=== PATIENT | female | born 1990 | race Hispanic/Latino ===

== ENCOUNTER 2020-03-26 07:53 | Outpatient (CLI) | payer OTHER ==
[2020-03-27 14:53] LABS: SARS-CoV-2 MS2 Positive; SARS-CoV-2 N Gene Negative; SARS-CoV-2 S Gene Negative; SARS-CoV-2 by NAA Not Detected (NotDetected); SARS-CoV-2 orf1ab Negative
== END 2020-03-26 07:54 | disposition home or self-care (01) ==
LOC: LABBT 07:53
PROVIDERS: ATTEND Obstetrics & Gynecology
DX: Z20.828 Contact with and (suspected) exposure to other viral communicable diseases (principal)
CPT/HCPCS: 87635; U0003

== ENCOUNTER 2020-03-30 19:15 | Inpatient (IN) | payer OTHER ==
[2020-03-31] MEDS ORDERED: Promethazine HCl 25 MG/ML VIAL IM PRN ×3 (03:51→10:22)
[2020-03-31] MEDS ORDERED: Butorphanol Tartrate 1 MG/ML VIAL SLOW IVP PRN (03:51)
[2020-03-31] MEDS ORDERED: Methylergonovine 0.2 MG/ML VIAL IM PRN (03:51)
[2020-03-31] MEDS ORDERED: Acetaminophen 500 MG TAB PO PRN (03:51)
[2020-03-31] MEDS ORDERED: NS w/ Oxytocin 10 units 500 ML IV SCH (03:51)
[2020-03-31] MEDS ORDERED: Carboprost 250 MCG/ML AMP IM PRN (03:51)
[2020-03-31] MEDS ORDERED: NS / Oxytocin 40 units/1000ml 1,000 ML IV PRN (03:51)
[2020-03-31] MEDS ORDERED: Diphenoxylate HCl/Atropine Tablet PO PRN ×2 (03:51)
[2020-03-31] MEDS ORDERED: Misoprostol 200 MCG TAB PR PRN (03:51)
[2020-03-31] MEDS ORDERED: Ibuprofen 800 MG TAB PO PRN (03:51)
[2020-03-31] MEDS ORDERED: Lidocaine 1% (PF) 30 ML VIAL SC PRN (03:51)
[2020-03-31] MEDS ORDERED: hydrALAZINE 20 MG/ML VIAL SLOW IVP PRN ×2 (03:51→14:12)
[2020-03-31] MEDS ORDERED: Ondansetron PF 4 MG/2 ML Vial IVP PRN ×3 (03:51→10:22)
[2020-03-31] MEDS ORDERED: HYDROcodone/Acetaminophen 5/325 mg Tablet PO PRN (03:51)
[2020-03-31 03:56] VITALS: BMI 39.6
[2020-03-31 04:09] LABS: Hemoglobin 11.4 g/dL (12.0-16.0); Mean Corpuscular HGB CONC 34.6 g/dL (32.0-36.0); Mean Corpuscular Hemoglobin 30.5 pg (27.0-31.0); Mean Corpuscular Volume 88.3 fL (78.0-98.0); Mean Platelet Volume 8.4 fL (7.4-10.4); Platelet Count 258 thou/uL (130-400); RBC Distribution Width 13.3 % (11.5-14.5); Red Blood Cell (RBC) Count 3.73 mill/uL (4.20-5.40); White Blood Cell (WBC) Count 7.3 thou/uL (4.8-10.8)
[2020-03-31 04:48] LABS: HBSAg Index 0.18 S/CO (0-0.99); Hep B Surf Ag Non-Reactive S/CO (NonReactive); Syphilis Antibody Nonreactive (Nonreactive); Syphilis Antibody Index 0.03 S/CO (<1.00 Non-Reactive)
[2020-03-31] MEDS: Lactated Ringer's 1,000 ML IV SCH ×2 (07:09→07:22)
[2020-03-31] MEDS: Misoprostol 100 MCG TAB VAG SCH ×3 (07:10→15:06)
[2020-03-31] MEDS ORDERED: Fentanyl 4 mcg/Bup 0.1% Cadd 100 ML ONE (08:20)
[2020-03-31] MEDS ORDERED: Naloxone HCl 0.4 mg/ml Vial IVP PRN ×2 (10:22)
[2020-03-31] MEDS ORDERED: Zolpidem Tartrate 5 MG TAB PO PRN (10:22)
[2020-03-31] MEDS ORDERED: Naloxone HCl 0.4 mg/ml Vial IV PRN (10:22)
[2020-03-31] MEDS ORDERED: Lactated Ringer's 500 ML IV PRN (10:22)
[2020-03-31] MEDS ORDERED: diphenhydrAMINE 50 MG/ML VIAL IM PRN (10:22)
[2020-03-31] MEDS ORDERED: Acetaminophen 325 MG TAB PO PRN (10:22)
[2020-03-31] MEDS ORDERED: diphenhydrAMINE 50 MG/ML VIAL IVP PRN ×2 (10:22)
[2020-03-31] MEDS ORDERED: EPHEDRINE 25 MG/5 ML SYRINGE SLOW IVP PRN (10:22)
[2020-03-31] MEDS ORDERED: diphenhydrAMINE 25 MG CAP PO PRN (10:22)
[2020-03-31] MEDS ORDERED: Communication Order-Pharmacy FS SCH ×2 (10:30)
[2020-03-31] MEDS ORDERED: Fentanyl 4 mcg/Bupivacaine 0.1% Cassette 100 ML EPIDURAL SCH (10:30)
[2020-03-31] MEDS ORDERED: Bupivacaine 0.25% HCL 30 ML VIAL ONE (11:29)
[2020-03-31] MEDS ORDERED: Lidocaine 2% MPF 10 ML AMP (For Epidural Use) ONE (11:29)
--- NOTE | 2020-03-31 12:09 | PDOC.OPDEL ---
OB Operative/Delivery Note Delivery Dr/Surgeon: All Pre-Delivery Diagnosis: elective induction Procedure/Post Delivery Dx: spontaneous vaginal delivery Weeks gestation: 39 Anesthesia: epidural - Findings A Sex: female - 1 min: 9 - 5 min: 9 - Additional Findings/Plan Placenta delivered: spontaneous Repaired Obstetrical Laceration: 1st degree Estimated blood loss: 50ml qbl Post delivery plan: routine recovery
[2020-03-31] MEDS ORDERED: Misoprostol 200 MCG TAB ONE (12:52)
[2020-03-31] MEDS ORDERED: Carboprost 250 MCG/ML AMP ONE (13:09)
[2020-03-31] MEDS ORDERED: NS / Oxytocin 40 units/1000ml 1,000 ML ONE (13:09)
[2020-03-31] MEDS ORDERED: Methylergonovine 0.2 MG/ML VIAL ONE (13:09)
[2020-03-31] MEDS ORDERED: Preparation H Ointment 28 GM TUBE PR PRN (14:12)
[2020-03-31] MEDS ORDERED: Bisacodyl 10 MG SUPP PR PRN (14:12)
[2020-03-31] MEDS ORDERED: NS / Oxytocin 40 units/1000ml 1,000 ML IV SCH (14:12)
[2020-03-31] MEDS ORDERED: Benzocaine-Menthol 82.5 ML CAN TOP PRN (14:12)
[2020-03-31] MEDS ORDERED: Lanolin Ointment 7 GM TUBE TOP PRN (14:12)
[2020-03-31] MEDS ORDERED: Milk Of Magnesia 30 ML UDCUP PO PRN (14:12)
[2020-03-31] MEDS ORDERED: traMADol HCl 50 MG TAB PO PRN (14:12)
[2020-03-31] MEDS: Ferrous Sulfate 325 MG TAB PO SCH (15:06)
[2020-03-31] MEDS: Ibuprofen 800 MG TAB PO SCH (22:02)
[2020-03-31] MEDS: Docusate Calcium (SURFAK) 240 MG CAP PO SCH (22:02)
[2020-04-01] MEDS: Ibuprofen 800 MG TAB PO SCH ×2 (05:14→14:30)
--- NOTE | 2020-04-01 07:48 | PDOC.PP ---
Post Progress Note Post Day #: 1 PO intake tolerated: yes Flatus: yes Ambulation: yes Vital Signs (12 hours) Temp Pulse Resp BP 04/01/20 05:10 97.6 F 69 14 121/77 03/31/20 23:50 98.2 F 68 15 104/70 Weight Weight 210 lb - Physical Examination Abdominal: lochia, no distention, appropriately TTP Extremities: negative homans (B) Result Diagrams: 03/31/20 03:59 Additional Labs: Post Labs Hep Bs Antigen Non-Reactive S/CO (NonReactive) 03/31/20 03:59 Blood Type O POSITIVE 03/31/20 03:59 - Assessment/Plan Post day 1--doing well. Discharge home today. has f/u in 6 weeks.
[2020-04-01 08:15] VITALS: BP 122/81; TEMP 97.7
[2020-04-01] MEDS ORDERED: FLU VACC QS2020-21(6MOS UP)/PF 60 MCG/0.5 ML SYRINGE IM ONE (08:45)
[2020-04-01] MEDS ORDERED: Prenatal Vitamin 1 TAB PO SCH (09:00)
[2020-04-01] MEDS: Docusate Calcium (SURFAK) 240 MG CAP PO SCH (10:02)
[2020-04-01] MEDS: Ferrous Sulfate 325 MG TAB PO SCH (10:03)
[2020-04-01] MEDS ORDERED: Adacel (T-DAP) 0.5 ML SYRINGE IM ONE (14:12)
== END 2020-04-01 14:40 | disposition home or self-care (01) | DRG 807 ==
LOC: L&D-LIB 03-31 03:16 → EEVIPCON 03-31 03:16 → 3SW 03-31 15:45
PROVIDERS: ADMIT Obstetrics & Gynecology; ATTEND Obstetrics & Gynecology
PROC: 10E0XZZ Delivery of Products of Conception, External Approach (ICD-10-PCS; principal; 2020-03-31)
PROC: 0HQ9XZZ Repair Perineum Skin, External Approach (ICD-10-PCS; 2020-03-31)
DX: O70.0 First degree perineal laceration during delivery (principal); Z37.0 Single live birth; Z3A.39 39 weeks gestation of pregnancy; Z20.828 Contact with and (suspected) exposure to other viral communicable diseases
CPT/HCPCS: 36415; 51702; 85027; 86780; 86850; 86900; 86901; 87340; J2001; J2210; J3490; S0020

== ENCOUNTER 2024-06-15 10:00 | Emergency (ER) | payer SELFPAY ==
[2024-06-15] MEDS ORDERED: Ketorolac Tromethamine 30 MG (1 mL) VIAL ONE (11:19)
[2024-06-15] MEDS ORDERED: hydrOXYzine 25 MG TAB ONE (11:22)
[2024-06-15 11:28] LABS: #Basophils Less than 0.03 10x3/uL (0.0-0.2); %Basophils 0.2 % (0.0-1.0); %Eosinophils 1.4 % (0.0-10.0); %Lymphocytes 42.4 % (21.0-51.0); %Monocytes 6.5 % (0.0-10.0); %Neutrophils 49.3 % (42.0-75.0); Hematocrit 43.7 % (36.0-47.0); Mean Corpuscular HGB CONC 34.3 g/dL (32.0-36.0); Mean Corpuscular Hemoglobin 30.1 pg (27.0-31.0); Mean Corpuscular Volume 87.6 fL (78.0-98.0); Mean Platelet Volume 10.1 fL (7.4-10.4); Platelet Count 293 10x3/uL (130-400); RBC Distribution Width 12.5 % (11.5-14.5); Red Blood Cell (RBC) Count 4.99 mill/uL (4.20-5.40)
[2024-06-15 11:38] LABS: BHCG - Serum Negative (NEGATIVE); Pregs Control Background? CLEAR/WHITE (CLR/WHITE); Pregs Control Bar Appear? YES (CONTROL BAR)
[2024-06-15 11:43] LABS: ALT (SGPT) 25 U/L (8-55); AST (SGOT) 23 U/L (5-34); Albumin 4.2 g/dL (3.5-5.0); Alkaline Phosphatase 100 U/L (40-110); Anion Gap 12 mmol/L (10-20); BUN (Urea Nitrogen) 9 mg/dL (7.0-18.7); Bilirubin, Total 0.3 mg/dL (0.2-1.2); CK (CPK) 60 U/L (29-168); Calc. Creatinine Clearance 0 mL/min (70-130); Calcium 9.3 mg/dL (7.8-10.44); Carbon Dioxide 20 mmol/L (22-29); Chloride 111 mmol/L (98-107); Estimated GFR 122; Globulin 3.7 g/dL (2.4-3.5); Glucose 97 mg/dL (70-105); Magnesium 2.2 mg/dL (1.6-2.6); Protein, Total 7.9 g/dL (6.0-8.3); Sodium 139 mmol/L (136-145)
[2024-06-15 11:49] LABS: Troponin I Less than 0.010 ng/mL (< 0.028)
== END 2024-06-15 11:22 | disposition home or self-care (01) ==
LOC: ERS 10:00
DX: M54.6 Pain in thoracic spine (principal)
CPT/HCPCS: 36415; 80053; 82550; 83735; 84484; 84703; 85025; 93005; 99283; J1885